=== PATIENT | male | born 1950 | race Caucasian/White ===

== ENCOUNTER 2018-01-28 21:09 | Emergency (ER) | payer MEDICARE, MEDICAID ==
[~2018-01-28] VITALS: Ht 170.2 cm; Wt 101.0 kg
[2018-01-28] MEDS ORDERED: ONDANSETRON HCL 4MG/2ML VIAL IV STA (22:03)
[2018-01-28] MEDS ORDERED: CLONIDINE 0.1MG TABLET PO ONE (22:15)
[2018-01-28 23:35] LABS: BASOPHILS % 0.7 % (0.0-2.0); EOSINOPHILS % 0.5 % (0.0-5.0); HEMATOCRIT. 44.2 % (42.0-52.0); HEMOGLOBIN. 15.3 g/dL (14.0-18.0); LYMPHOCYTES % 23.2 % (20.0-50.0); MEAN CORPUSCULAR HEMOGLOBIN 29.5 pg (28.0-32.0); MEAN CORPUSCULAR VOLUME 85.2 fL (80.0-94.0); MEAN PLATELET VOLUME 10.6 fl (7.4-10.4); MONOCYTES % 4.9 % (2.0-8.0); NEUTROPHILS % 70.7 % (40.0-76.0); PLATELET 147 x1000/uL (130-400); RED BLOOD CELL COUNT 5.19 mill/uL (4.7-6.1); RED CELL DISTRIBUTION WIDTH 13.7 % (11.6-14.6)
[2018-01-28 23:41] LABS: CHLORIDE 103 mEq/L (98-107)
[2018-01-28 23:43] LABS: INR 1.1
[2018-01-28 23:45] LABS: ETHANOL BLOOD < 10 mg/dL
[2018-01-28 23:50] LABS: CREATINE KINASE 74 IU/L (39-308)
[2018-01-29 00:45] VITALS: BP 157/75
== END 2018-01-29 00:47 | disposition home or self-care (01) ==
LOC: ER 21:09
DX: R42 Dizziness and giddiness (principal); E78.00 Pure hypercholesterolemia, unspecified; E11.9 Type 2 diabetes mellitus without complications; I10 Essential (primary) hypertension; Z86.73 Personal history of transient ischemic attack (TIA), and cerebral infarction without residual deficits
CPT/HCPCS: 36415; 70450; 71045; 80053; 82550; 84484; 85025; 85610; 93005; 99285; G0482; J2405